=== PATIENT | female | born 1955 | race Caucasian/White ===

== ENCOUNTER 2023-10-13 18:41 | Observation (INO) | payer BC, SELFPAY ==
[2023-10-13] VITALS (33 sets, daily range): BP systolic 143–212; BP diastolic 76–102; PULSE 58–69; RESP 14–18; TEMP 36.6–37.2; O2SAT 94–99
--- NOTE | 2023-10-13 19:00 | RT.EKG_ITS ---
APPROVED REPORT Exam: Resting ECG Reason for Exam: SOB Patient Location: E HR:58 bpm ECG Measurements Heart Rate 58 AXIS WA 147 P 53 QRSd 89 QRS 41 QT 418 T 62 QTc 410 Conclusion Sinus bradycardia...rate< [address] segment or T wave abnormlaiteis to suggest occlusive UT.
--- NOTE | 2023-10-13 19:04 | W.ED.GENAD ---
HPI General Date/Time Provider Initiated Documentation: 10/13/23 19:04. HPI Narrative: 67 year-old female presents to ED today by POV/ambulating with her son with a chief complaint of L arm and facial numbness with onset around 1715 that completely resolved in 10 minutes. Patient had just arrived from plane ride to see her son & grandson here in [place] from [place]. Quality described as tingling and numbness without loss of coordination or weakness- spreading to numbness of the left side of both her lips without facial droop or slurred speech, no radiation to slurred speech, altered mentation, lower extremity involvement, visual changes, dizziness, confusion, repetitive questioning, lack of coordination, the patient was able to ambulate around a grocery store for the entire 10 minutes that this lasted as it spontaneously resolved. Severity is described as unable to quantify. Palliating factors include nothing specific attempted they did present to urgent care around 1800 who sent them here. Provoking factors include nothing specific. Events leading up to the incident/Associated Symptoms: Patient denies known A-fib history, denies stroke history, takes only celecoxib, Humira for rheumatoid arthritis as well as pantoprazole. Patient not anticoagulated. Related Data Home Medications Medication Instructions Recorded Confirmed adalimumab subcut 10/13/23 celecoxib 200 mg capsule (Celebrex) 200 mg PO DAILY 10/13/23 10/13/23 pantoprazole 40 mg tablet,delayed 40 mg PO DAILY PRN 10/13/23 10/13/23 release (Protonix) Allergies Allergy/AdvReac Type Severity Reaction Status Date / Time Penicillins AdvReac Skin Rash Verified 10/13/23 18:57 General Stated Complaint: Vascular TASH: 3 Review of Systems All systems reviewed & are unremarkable except as noted in HPI and below Exam Narrative Exam Narrative: GENERAL APPEARANCE: Well-nourished, non-toxic, awake and alert, atraumatic, no acute distress. SKIN: Warm, pink, dry, intact, without rashes/lesions/ulcerations. HEAD: Normocephalic, atraumatic, normal hair distribution for gender/age. EYES: Pupils PERRLA, EOMs intact without nystagmus, normal conjunctiva, no exudates on lids/lashes. ENT: Nares patent, no circumoral cyanosis, no facial swelling NECK: Supple, trachea midline, painless cervical ROM, no carotid bruit. LUNGS/CHEST: Lungs CTA bilaterally- no rhonchi/rales/wheezes diffusely, non-labored respirations, normal A/P diameter, symmetrical expansion, no chest wall deformity HEART (CV/PV): Regular rate and rhythm without murmur, no peripheral edema, no JVD. ABDOMEN: Soft, non-distended, no guarding, no tenderness. MSK: Normal ROM, no swelling/deformity to bilateral UEs or LEs, moving all extremities without weakness, no cyanosis, spine midline without tenderness, normal curvature. NEURO: Mental Status AAOx4 - alert to person, place, time, events No facial droop, no forehead involvement, no dysmetria with cerebellar testing Motor: No focal weakness - strength 5/5 in bilateral UEs and LEs, proximal and distal, symmetric, no pronator drift. Sensory: sensation intact to light touch globally. Gait normal: patient ambulated without ataxia into ED room. NIH: 0 PSYCH: euthymic, cooperative, pleasant, appropriate speech Course Vital Signs Vital signs: Vital Signs Temperature 37.2 C 10/13/23 18:52 Pulse 69 10/13/23 18:52 Respiratory Rate 18 10/13/23 18:52 Blood Pressure 189/94 H 10/13/23 18:52 Pulse Oximetry 99 10/13/23 18:52 Temperature 37.2 C 10/13/23 18:52 Temperature Source Tympanic 10/13/23 18:52 Pulse 69 10/13/23 18:52 Respiratory Rate 18 10/13/23 18:52 Blood Pressure 189/94 H 10/13/23 18:52 Blood Pressure Position Supine 10/13/23 18:52 Pulse Oximetry 99 10/13/23 18:52 Oxygen Delivery Method Room Air 10/13/23 18:52 Oxygen Flow Rate 0 10/13/23 18:52 Pain Level 0 10/13/23 18:52 Medical Decision Making This dictation utilizes [id number] dictation software and may contain unedited grammatical errors. 67 y/o F presents to ED today with a chief complaint of L arm and facial numbness onset around 1715, completely resolved in 10 minutes, denies slurred speech, facial droop altered mentation or weakness throughout- has rheumatoid arthritis, denies a. fib history- patient did just fly to [place] from [place] today. Patient denies stroke history- presented to [facility] around 1800 who referred here. Patients' medical history: nothing specific. 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 Pertinent exam findings / vital signs include neuro intact with an NIH of 0, benign cardiopulmonary exam, benign abdomen, nontoxic vitals, regular rate, no carotid bruit. Differential / pathologies of concern include TIA, Neuropathy, Cervical Strain. Diagnostic studies of: -EKG, CBC, CMP, CRP/ESR, PT/PTT, urinalysis, lactate, Trop I + delta, BNP, TSH, CTA brain and neck. -EKG shows sinus bradycardia 58 bpm with normal axis, P waves followed by narrow complex QRS with good R wave progression, no acute ST changes, normal QT QTc. -CBC benign -CMP wnl -CRP/ESR neg -UA shows trace leuk esterase > reflexed to culture -Trop negative, delta pending -BNP wnl -TSH wnl -CTA head & neck shows some mild stenosis R vertebral artery, mild to moderate at left vertebral, <50% stenosis at R ICA Interventions of: -150mL/hr IVF. ED Course/Assessment/Plan: 67-year-old female who is traveling by plane all day from [place] presents after having a brief episode of left arm complete numbness and left-sided facial numbness at the grocery store with her son around 1715 today, she went to [facility] care about an hour later and was referred here. CTA of the head and neck shows less than 50% occlusion of the right ICA which could be source of atherosclerotic plaque if a piece broke off causing a TIA, she does not take any blood pressure medicines and her blood pressure is well out of control in the 190s to 200s over 90, she does not take aspirin or DAPT therapy, she has no known atrial fibrillation history. I counseled the patient that she has a high risk of further stroke if she is not optimized on medicine and admitted for TIA. I approached Dr. Hanson of the hospitalist service who accepted for admission, she received 324 mg aspirin while in the ED, likely needs a possible MRI, med management and neuroconsult. Findings not consistent with CVA, possible TIA though- patient has no other concerning pathology at this time, denies neck trauma. Disposition of Transient Ischemic Attack. Patient verbalized understanding of the plan and return to ED criteria and engaged in shared decision making. Medical Records Medical records reviewed: Yes I reviewed the patient's medical records. Imaging Data Radiologic Study: Attestation: I personally reviewed and interpreted this imaging study as follows: Imaging: CT Scan Radiologist's impression: Exam: CTA Head With Contrast, Arteriography Exam date and time: 10/13/2023 7:41 PM Age: 67 years old Clinical indication: Stroke-like symptoms; Other: L hand tingling; Additional info: L hand tingling, possible elvia today TECHNIQUE: Imaging protocol: Computed tomographic angiography of the head with contrast. Exam focused on the arteries. 3D rendering (Not supervised by radiologist): MIP and/or 3D reconstructed images were created by the technologist. Radiation optimization: All CT scans at this facility use at least one of these dose optimization techniques: automated exposure control; mA and/or kV adjustment per patient size (includes targeted exams where dose is matched to clinical indication); or iterative reconstruction. Contrast material: OMNIPAQUE 350; Contrast volume: 85 ml; Contrast route: INTRAVENOUS (IV); COMPARISON: No relevant prior studies available. FINDINGS: ANTERIOR CIRCULATION: Right internal carotid artery: Intracranial segment is patent with no significant stenosis. No aneurysm. Right middle cerebral artery: No occlusion or significant stenosis. No aneurysm. Right anterior cerebral artery: No occlusion or significant stenosis. No aneurysm. Left internal carotid artery: Intracranial segment is patent with no significant stenosis. No aneurysm. Left middle cerebral artery: No occlusion or significant stenosis. No aneurysm. Left anterior cerebral artery: No occlusion or significant stenosis. No aneurysm. POSTERIOR CIRCULATION: Right vertebral artery: Mild stenosis right vertebral artery at the foramen magnum. Left vertebral artery: [id number] stenosis left vertebral artery at the foramen magnum. Basilar artery: No occlusion or significant stenosis. No aneurysm. Right posterior cerebral artery: No occlusion or significant stenosis. No aneurysm. Left posterior cerebral artery: No occlusion or significant stenosis. No aneurysm. Brain: Small vessel ischemic changes in the periventricular white matter. No evidence of an acute cortical infarct. Cerebral ventricles: No ventriculomegaly. Paranasal sinuses: Mild ethmoid sinus disease. Bones/joints: Unremarkable. No acute fracture. Soft tissues: Unremarkable. IMPRESSION: 1. Mild stenosis right vertebral artery at the foramen magnum. 2. [id number]-[id number] stenosis left vertebral artery at the foramen magnum. PROCEDURE INFORMATION: Exam: CTA Neck With Contrast Exam date and time: 10/13/2023 7:41 PM Age: 67 years old Clinical indication: Stroke-like symptoms; Other: L hand tingling; Additional info: L hand tingling, possible elvia today TECHNIQUE: Imaging protocol: Computed tomographic angiography of the neck with contrast. Exam focused on the cervical segments of the vasculature. 3D rendering (Not supervised by radiologist): MIP and/or 3D reconstructed images were created by the technologist. Radiation optimization: All CT scans at this facility use at least one of these dose optimization techniques: automated exposure control; mA and/or kV adjustment per patient size (includes targeted exams where dose is matched to clinical indication); or iterative reconstruction. Contrast material: OMNIPAQUE 350; Contrast volume: 85 ml; Contrast route: INTRAVENOUS (IV); COMPARISON: No relevant prior studies available. FINDINGS: Right common carotid artery: No stenosis. No dissection or occlusion. Right internal carotid artery: Less than 50% stenosis proximal right ICA. Right external carotid artery: No occlusion or stenosis of the origin. Left common carotid artery: No stenosis. No dissection or occlusion. Left internal carotid artery: No stenosis of the extracranial segment. No dissection or occlusion. Left external carotid artery: No occlusion or stenosis of the origin. Right vertebral artery: No stenosis. No dissection or occlusion. Left vertebral artery: No stenosis. No dissection or occlusion. Soft tissues: Normal. No significant soft tissue swelling. Bones/joints: No acute fracture. IMPRESSION: Less than 50% stenosis proximal right ICA. REFERENCES: NASCET CRITERIA. The degree of stenosis in the cervical segment of the internal carotid artery is based on NASCET criteria. Normal is no stenosis. Mild is less than 50% stenosis. Moderate is 50-69% stenosis. Severe is 70% to 99% stenosis. Total occlusion is no detectable patent lumen. Dictated and Authenticated by: Ric Tellez MD. Ordering:RAFI De Leon MD Lab Data Lab results reviewed: Yes I reviewed the patient's lab results. Labs: 10/13/23 19:37 Urine - Reflex from Ua Urine Culture - Pending Laboratory Tests Range/Units 10/13/23 10/13/23 19:26 19:37 WBC (4.4-10.8) 10^3/uL 7.28 RBC (3.93-5.22) 10^6/uL 4.17 Hgb (11.2-15.7) g/dL 13.6 Hct (36.0-46.0) % 39.0 MCV (80-95) fL 94 MCH (27.0-33.0) pg 32.6 MCHC (32.0-36.0) % 34.9 RDW (11.7-14.6) % 12.8 Plt Count (130-400) 10^3/uL 334 MPV (8.0-11.0) fL 9.0 Immature Gran % 0.4 Neutrophils % 45.2 Lymphocytes % 41.2 Monocytes % 7.0 Eosinophils % 5.4 Basophils % 0.8 Nucleated RBC % (0.0-0.3) % 0.0 Absolute Neutrophils (1.2-6.7) 10^3/uL 3.29 Absolute Lymphocytes (1.2-3.4) 10^3/uL 3.00 Absolute Monocytes (0.1-0.8) 10^3/uL 0.51 Absolute Eosinophils (0.0-0.7) 10^3/uL 0.39 Absolute Basophils (0.0-0.2) 10^3/uL 0.06 ESR (0-30) mm/hr 6 PT (9.1-11.1) sec 9.8 INR (0.9-1.1) 1.0 APTT (23.6-32.8) sec 24.3 VBG Lactate (0.6-1.4) mmol/L 0.9 Sodium (136-145) mmol/L 142 Potassium (3.5-5.1) mmol/L 3.8 Chloride (98-107) mmol/L 105 Carbon Dioxide (21.0-32.0) mmol/L 27.4 Anion Gap (3-11) mmol/L 9.6 BUN (7-18) mg/dL 12 Creatinine (0.55-1.02) mg/dL 0.8 Est GFR (CKD-EPI 2020) (mL/min/1.73m2) 79.71 Glucose (74-106) mg/dL 99 Calcium (8.5-10.1) mg/dL 9.4 Magnesium (1.8-2.4) mg/dL 2.3 Total Bilirubin (0.2-1.0) mg/dL 0.6 AST (15-37) U/L 22 ALT (14-59) U/L 36 Alkaline Phosphatase (46-116) U/L 92 Troponin I (< or =60) ng/L < 50 C-Reactive Protein (<or=0.5) mg/dL < 0.50 NT-Pro-B Natriuret Pep (<300) pg/mL 35 Total Protein (6.4-8.2) g/dL 7.7 Albumin (3.4-5.0) g/dL 3.8 TSH (0.36-3.74) uIU/mL 2.91 Urine Color (Yellow) Yellow Urine Clarity (Clear) Clear Urine pH (5-8) 6.0 Ur Specific [place] (1.005-1.025) 1.015 Urine Protein (Neg-Trace) mg/dL Negative Urine Ketones (Negative) mg/dL Negative Urine Blood (Negative) Negative Urine Nitrite (Negative) Negative Urine Bilirubin (Negative) Negative Urine Urobilinogen (Up to 0.2) mg/dL 0.2 Ur Leukocyte Esterase (Negative) Trace H Urine RBC (0-2) HPF Negative Urine WBC (0-5) HPF 3-5 Ur Epithelial Cells (Negative) HPF Rare Urine Crystals (Negative) HPF Negative Urine Bacteria (Negative) HPF Rare Urine Casts (Negative) LPF Negative Urine Mucus (Negative) Negative Urine Other (Negative) Rare Renal Ur Culture Indicated? Yes Urine Glucose (Negative) mg/dL Negative Quality:SDOH Health Related Social Needs: No Data to Display PFSH All Active Problems (Updated 10/13/23 @ 21:36 by MULU Cole) Transient ischemic attack (Acute) Social History Smoking risk assessment performed?: No Do you feel safe at home: Yes Discharge Plan Disposition Patient Disposition: Admit to [facility] Condition: Stable Discharge Details Clinical Impression: Transient ischemic attack Primary Care Provider: None,None ED Provider: Moises Verdugo Home Meds and New Rx's Prescriptions: No Action adalimumab [Humira(CF) Pen] subcut celecoxib [Celebrex] 200 mg capsule 200 mg PO DAILY pantoprazole [Protonix] 40 mg tablet,delayed release (DR/EC) 40 mg PO DAILY PRN
[2023-10-13] MEDS: Normal Saline - Diluent 50 ML VIAL IJ (19:32)
[2023-10-13] MEDS: Omnipaque 350 MG/ML 100 ML BTL IJ (19:34)
[2023-10-13 19:36] LABS: Lactate 0.9 mmol/L (0.6-1.4)
[2023-10-13] MEDS: Normal Saline Flush 10 ML SYR IVP (19:37)
[2023-10-13 19:40] LABS: Abs Immature Grans 0.03 10^3/uL (0.0-0.06); Absolute Basophil Count 0.06 10^3/uL (0.0-0.2); Absolute Eosinophil Count 0.39 10^3/uL (0.0-0.7); Absolute Monocyte Count 0.51 10^3/uL (0.1-0.8); Absolute Neutrophil Count 3.29 10^3/uL (1.2-6.7); Basophils % 0.8; Eosinophils % 5.4; HGB 13.6 g/dL (11.2-15.7); Immature Grans % 0.4; Lymphocytes % 41.2; MCH 32.6 pg (27.0-33.0); MCHC 34.9 % (32.0-36.0); MCV 94 fL (80-95); Neutrophils % 45.2; Platelet Count 334 10^3/uL (130-400); RBC 4.17 10^6/uL (3.93-5.22); RDW 12.8 % (11.7-14.6); WBC 7.28 10^3/uL (4.4-10.8)
[2023-10-13 19:49] LABS: ESR 6 mm/hr (0-30)
[2023-10-13 19:54] LABS: PTT Activated 24.3 sec (23.6-32.8); Prothrombin Time 9.8 sec (9.1-11.1)
[2023-10-13 20:00] LABS: Bilirubin Negative (Negative); Blood Negative (Negative); Clarity Clear (Clear); Glucose Negative (Negative); Ketones Negative (Negative); Leukocyte Esterase Trace (Negative); Nitrite Negative (Negative); Specific Gravity 1.015 (1.005-1.025); Urobilinogen 0.2 mg/dL (Up to 0.2)
[2023-10-13] MEDS: Normal Saline 1,000 ML 150 ML IV (20:00)
[2023-10-13 20:06] LABS: Bacteria Rare HPF (Negative); C & S Indicated? Yes; Casts Negative LPF (Negative); Crystals Negative HPF (Negative); Epithelial Cells Rare HPF (Negative); Mucus Negative (Negative); Other Cells Rare Renal (Negative); RBC Negative HPF (0-2)
[2023-10-13 20:07] LABS: NT-proBNP 35 pg/mL (<300); TSH (W/Ref FT4) 2.91 uIU/mL (0.36-3.74)
[2023-10-13 20:10] LABS: ALT 36 U/L (14-59); AST 22 U/L (15-37); Albumin 3.8 g/dL (3.4-5.0); Alkaline Phosphatase 92 U/L (46-116); Anion Gap 9.6 mmol/L (3-11); BUN 12 mg/dL (7-18); Bilirubin, Total 0.6 mg/dL (0.2-1.0); C-Reactive Protein < 0.50 mg/dL (<or=0.5); CO2 27.4 mmol/L (21.0-32.0); CREATININE 0.8 mg/dL (0.55-1.02); Calcium 9.4 mg/dL (8.5-10.1); Chloride 105 mmol/L (98-107); Estimated GFR 79.71 (mL/min/1.73m2); Glucose 99 mg/dL (74-106); Magnesium 2.3 mg/dL (1.8-2.4); Potassium 3.8 mmol/L (3.5-5.1); Sodium 142 mmol/L (136-145); Total Protein 7.7 g/dL (6.4-8.2); Troponin I < 50 ng/L (< or =60)
--- NOTE | 2023-10-13 20:17 | DI.CT_ITS ---
Exam(s) CT BRAIN NECK CTA EXAM: CT BRAIN NECK CTA CLINICAL HISTORY: possible TIA today. TECHNIQUE: Imaging Protocol: Axial CT angiography was performed with multi-slice acquisition and mu lti-planar and MIP reconstructions. CONTRAST MATERIAL: Intravenous: Omnipaque 350 Contrast volume:100 ml COMPARISON: No exams were available for comparison FINDINGS: CT Head W/O and W contrast: Ventricles and Extra axial spaces: Normal in size and morphology for the patient's age. Hemorrhage: None. Cerebral parenchyma: No evidence of acute infarct or mass. Midline shift: None. Brainstem/Cerebellum: No acute findings.. Calvarium: Normal. Visualized Paranasal sinuses/Mastoids: Clear. Soft Tissues: Unremarkable. Enhancement: Normal. CTA Brain W: Internal Carotid Arteries: Petrous: Normal. Cavernous: Normal. Cerebral: Normal. Middle Cerebral Arteries: Right: No aneurysm, occlusion or significant stenosis. Left: No aneurysm, occlusion or significant stenosis. Anterior Cerebral Arteries: Right: No aneurysm, occlusion or significant stenosis. Left: No aneurysm, occlusion or significant stenosis. Posterior cerebral Arteries: Right: No aneurysm, occlusion or significant stenosis. Left: No aneurysm, occlusion or significant stenosis. Vertebral Arteries: Right: Calcific plaque at the level of the foramen magnum causing mild stenosis.No aneurysm, occlusi on or significant stenosis. Left: Calcific plaque at the level of the foramen magnum causing mild stenosis. No aneurysm, occlusio n or significant stenosis. Basilar Artery: No aneurysm, occlusion or significant stenosis. CTA Neck W: Common Carotid: Right: No dissection, occlusion or significant stenosis. Left: No dissection, occlusion or significant stenosis. External Carotid: Right: No dissection, occlusion or significant stenosis. Left: No dissection, occlusion or significant stenosis. Internal Carotid: Right: Calcific plaque proximally causing less than 50 percent stenosis.. No dissection. Left: Calcific plaque proximally. No dissection, occlusion or significant stenosis. Vertebral Artery: Right: No dissection, occlusion or significant stenosis. Left: No dissection, occlusion or significant stenosis. Lung Apices: Normal. Bones: No acute abnormality. Degenerative changes in the cervical spine. Soft Tissues: Normal. IMPRESSION: 1. CTA brain: Calcific plaque at the distal vertebral arteries, at the level of the foramen magnum ca using mild stenosis. Otherwise normal CTA examination of the [place]. 2. Head CT: Unremarkable CT Head. 3. CTA neck: Calcific plaque at the left proximal internal artery carotid artery causing less than 50 percent stenosis. Calcific plaque at the proximal right internal carotid artery with minimal stenos is. RADIATION DOSE DELIVERED: 1,748.01mGy.cm Total DLP DATA REPOSITORY: All CT scans at this facility are submitted to the National Radiology Data Registry (NRDR) Dose Index Registry (DIR) with the [employer] (ACR). RADIATION OPTIMIZATION: All CT scans at this facility use at least one of these dose optimization te chniques: automated exposure control; mA and/or kV adjustment per patient size (includes targeted exa ms where dose is matched to clinical indication); or iterative reconstruction.
--- NOTE | 2023-10-13 20:22 | DI.VRAD_ITS ---
PROCEDURE INFORMATION: Exam: CTA Head With Contrast, Arteriography Exam date and time: 10/13/2023 7:41 PM Age: 67 years old Clinical indication: Stroke-like symptoms; Other: L hand tingling; Additional info: L hand tingling, possible elvia today TECHNIQUE: Imaging protocol: Computed tomographic angiography of the head with contrast. Exam focused on the arteries. 3D rendering (Not supervised by radiologist): MIP and/or 3D reconstructed images were created by the technologist. Radiation optimization: All CT scans at this facility use at least one of these dose optimization techniques: automated exposure control; mA and/or kV adjustment per patient size (includes targeted exams where dose is matched to clinical indication); or iterative reconstruction. Contrast material: OMNIPAQUE 350; Contrast volume: 85 ml; Contrast route: INTRAVENOUS (IV); COMPARISON: No relevant prior studies available. FINDINGS: ANTERIOR CIRCULATION: Right internal carotid artery: Intracranial segment is patent with no significant stenosis. No aneurysm. Right middle cerebral artery: No occlusion or significant stenosis. No aneurysm. Right anterior cerebral artery: No occlusion or significant stenosis. No aneurysm. Left internal carotid artery: Intracranial segment is patent with no significant stenosis. No aneurysm. Left middle cerebral artery: No occlusion or significant stenosis. No aneurysm. Left anterior cerebral artery: No occlusion or significant stenosis. No aneurysm. POSTERIOR CIRCULATION: Right vertebral artery: Mild stenosis right vertebral artery at the foramen magnum. Left vertebral artery: [id number]-zrwzoooi stenosis left vertebral artery at the foramen magnum. Basilar artery: No occlusion or significant stenosis. No aneurysm. Right posterior cerebral artery: No occlusion or significant stenosis. No aneurysm. Left posterior cerebral artery: No occlusion or significant stenosis. No aneurysm. Brain: Small vessel ischemic changes in the periventricular white matter. No evidence of an acute cortical infarct. Cerebral ventricles: No ventriculomegaly. Paranasal sinuses: Mild ethmoid sinus disease. Bones/joints: Unremarkable. No acute fracture. Soft tissues: Unremarkable. IMPRESSION: 1. Mild stenosis right vertebral artery at the foramen magnum. 2. Qfpj-ip-yucsricw stenosis left vertebral artery at the foramen magnum. PROCEDURE INFORMATION: Exam: CTA Neck With Contrast Exam date and time: 10/13/2023 7:41 PM Age: 67 years old Clinical indication: Stroke-like symptoms; Other: L hand tingling; Additional info: L hand tingling, possible elvia today TECHNIQUE: Imaging protocol: Computed tomographic angiography of the neck with contrast. Exam focused on the cervical segments of the vasculature. 3D rendering (Not supervised by radiologist): MIP and/or 3D reconstructed images were created by the technologist. Radiation optimization: All CT scans at this facility use at least one of these dose optimization techniques: automated exposure control; mA and/or kV adjustment per patient size (includes targeted exams where dose is matched to clinical indication); or iterative reconstruction. Contrast material: OMNIPAQUE 350; Contrast volume: 85 ml; Contrast route: INTRAVENOUS (IV); COMPARISON: No relevant prior studies available. FINDINGS: Right common carotid artery: No stenosis. No dissection or occlusion. Right internal carotid artery: Less than 50% stenosis proximal right ICA. Right external carotid artery: No occlusion or stenosis of the origin. Left common carotid artery: No stenosis. No dissection or occlusion. Left internal carotid artery: No stenosis of the extracranial segment. No dissection or occlusion. Left external carotid artery: No occlusion or stenosis of the origin. Right vertebral artery: No stenosis. No dissection or occlusion. Left vertebral artery: No stenosis. No dissection or occlusion. Soft tissues: Normal. No significant soft tissue swelling. Bones/joints: No acute fracture. IMPRESSION: Less than 50% stenosis proximal right ICA. REFERENCES: NASCET CRITERIA. The degree of stenosis in the cervical segment of the internal carotid artery is based on NASCET criteria. Normal is no stenosis. Mild is less than 50% stenosis. Moderate is 50-69% stenosis. Severe is 70% to 99% stenosis. Total occlusion is no detectable patent lumen. Dictated and Authenticated by: Ric Tellez MD. Ordering:RAFI De Leon MD
[2023-10-13] MEDS: Aspirin 325 MG TAB PO (21:27)
--- NOTE | 2023-10-13 21:59 | W.PM.HP.N ---
Date of service: 10/13/23 Time of Service: 21:59 Assessment and Plan Assessment and plan (1) Transient ischemic attack: Status: Acute Assessment and plan: Probable TIA. Will continue ASA, watch telemetry, check lipid profile, cardiac ECHO and consult Neuro. Advised we might want to start treatment for BP but she would prefer to hold off and thinks this is just the stress of the situation; agrees though that she will keep an eye on it. History of Present Illness History of Present Illness Chief Complaint: hand numbness Narrative: 67 female who reports h/o white coat hypertension. Here visiting from [place], has had a hectic day -- no sleep last night, flew in this morning, in the car for hours... Reports fairly sudden onset left hyand numbness and tingling around 5 PM, the also left side of lowerr face. No weakness, visual changes, speech or language disturbance. No SAUNDERS. Lasted approx 10 minutes and came to ER for evaluation. Here in ER w/o of note for BP 160-212/84-102; negative non-contrast head CT, and CTA showing <50% stenosis right ICA, otherwise no findings. Patient given ASA 324. I was asked to evaluate for admission. States she feels fine at present (other than anxious about being here). Quit smoking 30 years ago. No h/o DM. Dose not know cholesterol. Review of Systems Narrative: per HPI PFSH All Active Problems Transient ischemic attack (Acute) Social History Smoking risk assessment performed?: No Do you feel safe at home: Yes Meds Allergies and Home Medications Allergies Allergy/AdvReac Type Severity Reaction Status Date / Time Penicillins AdvReac Skin Rash Verified 10/13/23 18:57 Home Medications Medication Instructions Recorded Confirmed Type adalimumab subcut 10/13/23 History celecoxib 200 mg capsule (Celebrex) 200 mg PO DAILY 10/13/23 10/13/23 History pantoprazole 40 mg tablet,delayed 40 mg PO DAILY PRN 10/13/23 10/13/23 History release (Protonix) Exam Narrative Exam Narrative: 205/93, 60, 37.2, 18, 95% RA. HEENT atraumatic; neck supple, w/o bruit; lungs clear; heart RRR; abdomen soft and NT; extremities w/o edema, pulses 2+/=, Phalen's and Tinel's tests negative left wrist; neuro Ox3, lucid, no language deficits; PERRL, EOMI, williamson full, no facial asymettry, tongue midline; motor 5/5 prox/distal; sensory intact light touch; toes downgoing Results Labs 10/13/23 19:26 10/13/23 19:26 Labs: Laboratory Results - last 24 hr 10/13/23 10/13/23 19:26 19:37 WBC 7.28 RBC 4.17 Hgb 13.6 Hct 39.0 MCV 94 MCH 32.6 MCHC 34.9 RDW 12.8 Plt Count 334 MPV 9.0 Immature Gran % 0.4 Neutrophils % 45.2 Lymphocytes % 41.2 Monocytes % 7.0 Eosinophils % 5.4 Basophils % 0.8 Nucleated RBC % 0.0 Absolute Neutrophils 3.29 Absolute Lymphocytes 3.00 Absolute Monocytes 0.51 Absolute Eosinophils 0.39 Absolute Basophils 0.06 ESR 6 PT 9.8 INR 1.0 APTT 24.3 VBG Lactate 0.9 Sodium 142 Potassium 3.8 Chloride 105 Carbon Dioxide 27.4 Anion Gap 9.6 BUN 12 Creatinine 0.8 Est GFR (CKD-EPI 2020) 79.71 Glucose 99 Calcium 9.4 Magnesium 2.3 Total Bilirubin 0.6 AST 22 ALT 36 Alkaline Phosphatase 92 Troponin I < 50 C-Reactive Protein < 0.50 NT-Pro-B Natriuret Pep 35 Total Protein 7.7 Albumin 3.8 TSH 2.91 Urine Color Yellow Urine Clarity Clear Urine pH 6.0 Ur Specific [place] 1.015 Urine Protein Negative Urine Ketones Negative Urine Blood Negative Urine Nitrite Negative Urine Bilirubin Negative Urine Urobilinogen 0.2 Ur Leukocyte Esterase Trace H Urine RBC Negative Urine WBC 3-5 Ur Epithelial Cells Rare Urine Crystals Negative Urine Bacteria Rare Urine Casts Negative Urine Mucus Negative Urine Other Rare Renal Ur Culture Indicated? Yes Urine Glucose Negative Last Vital Signs Temp 37.2 C 10/13/23 18:52 Pulse 60 10/13/23 21:31 Resp 18 10/13/23 18:52 BP 205/93 H 10/13/23 21:31 Pulse Ox 95 10/13/23 21:32 PAWSS Have you Been Recently Intoxicated or Drunk Within the Last 30 days?: No Have you Ever Experienced Previous Episodes of Alcohol Withdrawal?: No Have you ever Experienced Withdrawal Seizures?: No Have you ever Experienced Delirium Tremens(DT)s?: No Have you ever undergone Alcohol Rehabilitation Treatment (i.e, inpt ot outpatient treatment programs)?: No Have you ever Experienced Blackouts?: No Have you ever Combined Alcohol with other Downers within the last 90 days?: No Have you ever Combined Alcohol with any other Substance of Abuse during the last 90 days?: No Positive Blood Alcohol level on Presentation? [PCS.BAL]: Unable to Obtain Evidence of Increased Autonomic Activity (i.e. HR>120, tremor, sweating, agitation, nausea)?: No Result: 0 Time Spent Time spent with Patient: 40-54 minutes Time was spent: preparing to see the patient(eg.review tests), obtaining and/or reviewing separately otained hiistory, ordering medications,tests, procedures, referring, communicating with other health acute care nursing assistant and indepentently interpreting results
[2023-10-13 22:47] LABS: Troponin I < 50 ng/L (< or =60)
--- NOTE | 2023-10-14 | DI.US_ITS ---
Exam(s) US CAROTID EXAM: US CAROTID CLINICAL HISTORY: carotid stenosis. TECHNIQUE: Ultrasound carotids performed using grayscale, color-flow, and spectral Doppler imaging. COMPARISON: CT CT BRAIN NECK CTA from 10/13/2023 FINDINGS: RIGHT CAROTID ARTERY: Plaque: Calcific plaque is seen in the proximal right internal carotid artery. Velocity elevation: Full loss the elevation is seen in the proximal right internal carotid artery. LEFT CAROTID ARTERY: Plaque: Mild calcific plaque is seen in the carotid bulb. Velocity elevation: None. VERTEBRAL ARTERIES: Antegrade flow. Measurements: R Bulb: 93.6cm/s PS / 26.9cm/s ED R CCA: 83.7cm/s PS / 30.2cm/s ED R ECA: 106.1cm/s PS / 21.6cm/s ED R ICA Prox: 136.2cm/s PS / 39.4cm/s ED R ICA Mid: 78.3cm/s PS / 28cm/s ED R ICA Distal: 98cm/s PS /33.8cm/s ED R Vert: 39.5cm/s PS / 15.3cm/s ED R SVR: 1.6 R DVR: 1.3 L Bulb: 66.3cm/s PS / 20.3cm/s ED L CCA: 76.3cm/s PS / 27.1cm/s ED L ECA: 96.8cm/s PS / 16cm/s ED L ICA Prox: 87cm/s PS / 29.1cm/s ED L ICA Mid: 86.5cm/s PS / 27.7cm/s ED L ICA Distal: 99cm/s PS / 36.1cm/s ED L Vert: 46.1cm/s PS / 16.4cm/s ED L SVR: 1.3 L DVR: 1.3 IMPRESSION: 1. Velocity elevations seen in the proximal right internal carotid artery consistent with 50-69 perce nt proximal right ICA stenosis. 2. No hemodynamically significant left internal carotid artery stenosis. Criteria for Carotid Stenosis: Normal: ICA PSV <125 cm/s no plaque or intimal thickening is visible. <50% stenosis: ICA PSV <125 cm/s and plaque or intimal thickening is visible. 50-69% stenosis: ICA PSV is 125-250 cm/s and plaque is visible. >70% stenosis to near occlusion: ICA PSV >250 cm/s with visible plaque and luminal narrowing. DATA REPOSITORY:
--- NOTE | 2023-10-14 | DI.MRI_ITS ---
Exam(s) MR BRAIN WO EXAM: MR BRAIN WO CLINICAL HISTORY: TIA TECHNIQUE: Multiplanar multisequence MRI of the brain was performed. COMPARISON: CT CT BRAIN NECK CTA from 10/13/2023 FINDINGS: VENTRICLES AND EXTRA AXIAL SPACES: Normal in size and morphology for the patient's age. MIDLINE SHIFT: None. CEREBRAL PARENCHYMA: No focus of restricted diffusion to suggest acute infarct. No space-occupying le izzy identified. Mild atrophy consistent with the patient's age. Mild scattered foci of high signal in the white matter consistent with sequela of chronic microvascular disease. HEMORRHAGE: None. BRAINSTEM/CEREBELLUM: Normal. VISUALIZED PARANASAL SINUSES/MASTOIDS:Clear. Vasculature: Normal flow void. PITUITARY GLAND: Unremarkable. ORBITS: Unremarkable. IMPRESSION: No evidence of acute infarct. DATA REPOSITORY:
[2023-10-14 02:21] VITALS: BP 133/69; PULSE 63; RESP 14; TEMP 35.9; O2SAT 98
[2023-10-14] MEDS: Normal Saline 1,000 ML 150 ML IV (02:27)
[2023-10-14 06:17] VITALS: BP 143/73; PULSE 58; RESP 14; TEMP 35.9; O2SAT 97
[2023-10-14 06:38] LABS: Calculated LDL 122 mg/dL (<100); Cholesterol 201 mg/dL (<200); HDL Cholesterol 48 mg/dL (40-60); Triglyceride 158 mg/dL (<150)
[2023-10-14 06:48] LABS: Hemoglobin A1C 5.2 % (<5.7)
[2023-10-14] MEDS: Aspirin 325 MG TAB PO (08:03)
--- NOTE | 2023-10-14 09:08 | INITIAL_ITS ---
Date of service: 10/14/23 Time of Service: 09:09 Care Management Initial Assmt Initial Assessment REASON FOR HOSPITALIZATION:: TIA PREVIOUS FUNCTIONAL STATUS/SOCIAL/FAMILY SUPPORTS:: Sheryl lives in [place], [place] with her . They have grown children. Sheryl and her visiting with their son and his family. They plan to return home in 3 days. Sheryl is independent at baseline. CURRENT FUNCTIONAL STATUS:: Sheryl was sitting on the side of her bed when CM met with her. She wanted to know if the neurologist was going to see her today as she did not want to spend another night at [facility]. She was assured that she wou and at that time Dr. Hurley arrived. Sheryl requested a copy of her medical record and CM informed her she would need to obtain it from medical records. She was given the phone number to call. QUYNH also assured her she would fax the discharge summary to her PCPs office in [place]. ADVANCE DIRECTIVES:: none on file Has patient been provided with info about the portal/API?: Yes Did the patient sign up for the portal?: Yes CODE STATUS:: Full Code INSURANCE COVERAGE / FINANCIAL ISSUES:: BC out of state CURRENT HOME/COMMUNITY SERVICES/EQUIPMENT:: none PRIMARY CARE PHYSICIAN:: none local - from [place] POTENTIAL DISCHARGE NEEDS:: follow up with PCP when she returns home PATIENT/FAMILY EDUCATION NEEDS:: Review of discharge instructions, limitations, follow up plan, discuss Ask Me Three TRANSPORTATION:: via private vehicle with son PLAN:: Sheryl will be discharged home with no new services. She will follow up with her PCP when she returns to [place] and will transport with her son with whom she is staying. PFSH All Active Problems (Updated 10/14/23 @ 16:03 by Qi Bach NP) Hypertension (Chronic) Carotid stenosis, right (Acute) Transient ischemic attack (Acute) Social History Smoking risk assessment performed?: No Housing: house Do you feel safe at home: Yes SDOH(Care Management) Screening Will the Patient Participate in the Screening?: Yes Do you worry about having a steady place to live?: no Problems where you live: no known problems In the past 12 months, have you had to go without electric, gas, oil or water in your home?: no Have you or anyone in your house had to go without enough food to eat?: no Has lack of transportation kept you from medical appointments or from doing things needed for daily living?: no Has anyone in your support network made you feel unsafe for any reason?: no
[2023-10-14 11:14] VITALS: BP 156/79; PULSE 73; RESP 16; TEMP 36.2; O2SAT 95
[2023-10-14 15:24] VITALS: BP 131/70; PULSE 64; RESP 16; TEMP 36.5; O2SAT 98
--- NOTE | 2023-10-14 16:01 | DSE_ITS ---
Date of service: 10/14/23 Time of Service: 16:01 DS: Diagnosis Discharge Diagnosis (1) Transient ischemic attack: Status: Acute (2) Carotid stenosis, right: Status: Acute (3) Hypertension: Status: Chronic Discharge Plan Disposition Patient Disposition: Home Condition: Stable Discharge Details Reason For Visit: TIA Admit Date/Time: 10/13/23 22:13 Admit Provider: Ric Hanson Attending Provider: Ric Hanson Primary Care Provider: Unknown,Unknown Hospital Course Hospital Course: This is a 67-year-old female patient traveling from [place] who after daily traveling developed left-sided facial and hand numbness most consistent with a TIA. Her symptoms resolved spontaneously after 10 minutes. She presented here to the emergency department for evaluation. The etiology of her TIA remains unknown but most likely due to a right internal carotid artery stenosis found on her stroke workup. MRI imaging showed no acute CVA. Her TTE ED with no was notable for severely dilated left atria. She had no evidence of atrial fibri llation while being monitored here in the hospital. Blood pressures were noted to be elevated in the 1 40-1 60 range higher at time of admission but she attributed this to whitecoat syndrome it was suspected that she does have untreated hypertension. She was advised to follow-up with her primary care provider. She was seen by neurology here and recommendations are for dual antiplatelet therapy for 30 days. She was loaded with 300 mg of clopidogrel here she also received atorvastatin 80 mg and will be discharged home on atorvastatin 40 mg daily with LDL goal of less than 70% to reduce her risk of stroke. She will follow-up with her primary care provider as soon as she returns home. Discussed with Dr Shavonne Lopez Meds and New Rx's Prescriptions: New atorvastatin 40 mg tablet 40 mg PO DAILY Qty: 30 0RF clopidogrel 75 mg tablet 75 mg PO DAILY Qty: 30 0RF aspirin 81 mg capsule 81 mg PO DAILY Qty: 30 0RF Continued adalimumab [Humira(CF) Pen] subcut celecoxib [Celebrex] 200 mg capsule 200 mg PO DAILY pantoprazole [Protonix] 40 mg tablet,delayed release (DR/EC) 40 mg PO DAILY PRN Discharge Instructions Instructions: Carotid Artery Disease (DC), Hypertension (DC) Additional Instructions: take medication as prescribed. discuss treatment for your hypertension with your doctor when you return home. you will need referrals to vascular surgery and neurology from your primary care provider when you return so call to schedule appointment as soon as possible. Stand Alone Forms: Nursing Discharge Form Referrals: Unknown,Unknown [Primary Care Provider] - (primary care provider, neurology and cardiovascular surgery) Activity:: Activity as Tolerated Equipment/Supplies:: No Equipment Needed Diet:: heart healthy Discharge Orders Discharge Orders: Discharge Order (Routine); Ordered 10/14/23 Ordered By: Qi Bach Discharge Data Discharge Date/Time-TO BE ENTERED AT DEPARTURE: 10/14/23 19:15 DS: Summary Time Spent with Patient providing and/or coordinating discharge services: Less than 30 minutes Status at Discharge Functional status at discharge: independent ambulation Overall status at discharge: patient is back to baseline Mental Status: mental status grossly normal Speech and Movement: speech and movement normal Mood: congruent mood Affect: normal affect Quality:SDOH Health Related Social Needs: 2 No Data to Display Exam Psych Mental Status: mental status grossly normal Speech and Movement: speech and movement normal Mood: congruent mood Affect: normal affect DS: Data Vitals/I&O Vitals and I&O: Vital Signs Temperature 36.5 C 10/14/23 15:24 Temperature Source Tympanic 10/14/23 15:24 Pulse 64 10/14/23 15:24 Pulse Rhythm Regular 10/14/23 15:58 Respiratory Rate 16 10/14/23 15:24 Respiratory Effort Normal, Non-Labored 10/14/23 15:58 Respiratory Depth Normal 10/14/23 15:58 Respiratory Pattern Normal 10/14/23 15:58 Blood Pressure 131/70 10/14/23 15:24 Blood Pressure Mean 130 10/13/23 22:30 Blood Pressure Position Supine 10/13/23 18:52 Pulse Oximetry 98 10/14/23 15:24 Oxygen Delivery Method Room Air 10/14/23 15:24 Oxygen Flow Rate 0 10/14/23 15:24 Pain Level 0 10/14/23 15:24 Intake & Output 10/13/23 10/14/23 10/14/23 23:59 11:59 23:59 Intake Total 240 / 2216. Balance 240 / 2216. Weight 80.478 kg Intake: IV Oral 240 / 240 Other: Urine Appearance Clear Clear Urine Odor Normal Comment pt independent Voiding Methods Toilet Toilet Data Completed and Pending Labs on day of discharge: Labs from last 24 hours 10/14/23 10/13/23 10/13/23 06:10 22:20 19:37 WBC RBC Hgb Hct MCV MCH MCHC RDW Plt Count MPV Immature Gran % Neutrophils % Lymphocytes % Monocytes % Eosinophils % Basophils % Nucleated RBC % Absolute Neutrophils Absolute Lymphocytes Absolute Monocytes Absolute Eosinophils Absolute Basophils ESR PT INR APTT VBG Lactate Sodium Potassium Chloride Carbon Dioxide Anion Gap BUN Creatinine Est GFR (CKD-EPI 2020) Glucose Hemoglobin A1c 5.2 Calcium Magnesium Total Bilirubin AST ALT Alkaline Phosphatase Troponin I < 50 C-Reactive Protein NT-Pro-B Natriuret Pep Total Protein Albumin Triglycerides 158 H Total Cholesterol 201 H LDL Cholesterol, Calc 122 H HDL Cholesterol 48 TSH Urine Color Yellow Urine Clarity Clear Urine pH 6.0 Ur Specific [place] 1.015 Urine Protein Negative Urine Ketones Negative Urine Blood Negative Urine Nitrite Negative Urine Bilirubin Negative Urine Urobilinogen 0.2 Ur Leukocyte Esterase Trace H Urine RBC Negative Urine WBC 3-5 Ur Epithelial Cells Rare Urine Crystals Negative Urine Bacteria Rare Urine Casts Negative Urine Mucus Negative Urine Other Rare Renal Ur Culture Indicated? Yes Urine Glucose Negative 10/13/23 19:26 WBC 7.28 RBC 4.17 Hgb 13.6 Hct 39.0 MCV 94 MCH 32.6 MCHC 34.9 RDW 12.8 Plt Count 334 MPV 9.0 Immature Gran % 0.4 Neutrophils % 45.2 Lymphocytes % 41.2 Monocytes % 7.0 Eosinophils % 5.4 Basophils % 0.8 Nucleated RBC % 0.0 Absolute Neutrophils 3.29 Absolute Lymphocytes 3.00 Absolute Monocytes 0.51 Absolute Eosinophils 0.39 Absolute Basophils 0.06 ESR 6 PT 9.8 INR 1.0 APTT 24.3 VBG Lactate 0.9 Sodium 142 Potassium 3.8 Chloride 105 Carbon Dioxide 27.4 Anion Gap 9.6 BUN 12 Creatinine 0.8 Est GFR (CKD-EPI 2020) 79.71 Glucose 99 Hemoglobin A1c Calcium 9.4 Magnesium 2.3 Total Bilirubin 0.6 AST 22 ALT 36 Alkaline Phosphatase 92 Troponin I < 50 C-Reactive Protein < 0.50 NT-Pro-B Natriuret Pep 35 Total Protein 7.7 Albumin 3.8 Triglycerides Total Cholesterol LDL Cholesterol, Calc HDL Cholesterol TSH 2.91 Urine Color Urine Clarity Urine pH Ur Specific [place] Urine Protein Urine Ketones Urine Blood Urine Nitrite Urine Bilirubin Urine Urobilinogen Ur Leukocyte Esterase Urine RBC Urine WBC Ur Epithelial Cells Urine Crystals Urine Bacteria Urine Casts Urine Mucus Urine Other Ur Culture Indicated? Urine Glucose 10/13/23 19:37 Urine - Reflex from Urine Culture - Pending Preliminary micro results at discharge 10/13/23 19:37 Urine Culture - Pending Urine - Reflex from [facility] All Active Problems (Updated 10/15/23 @ 00:05 by JOSEPH VENTURA) Atrial dilatation, left (Acute) Hypertension (Chronic) Carotid stenosis, right (Acute) Transient ischemic attack (Acute) Social History Smoking risk assessment performed?: No Housing: house Do you feel safe at home: Yes Time Spent with Patient Time Spent with Patient: <45 minutes Time was spent: preparing to see the patient(eg.review tests), obtaining and/or reviewing separately otained hiistory, ordering medications,tests, procedures, referring, communicating with other health school child care attendant, indepentently interpreting results and counseling the patient
--- NOTE | 2023-10-14 16:27 | W.NEUROCONSU ---
Date of service: 10/14/23 Time of Service: 16:27 Assessment and Plan Assessment and plan (1) Transient ischemic attack: Status: Acute (2) Hypertension: Status: Chronic (3) Carotid stenosis, right: Status: Acute (4) Atrial dilatation, left: Status: Acute Assessment and plan: Ms. King was admitted after an episode of L face and hand numbness that seems most consistent with TIA. Etiology of her TIA remains unknown, but likely due to R ICA stenosis. After I spoke with her and after her discharge, TTE results returned notable for severely dilated L atria (I will call her tomorrow am with this info as we had pre-planned). This could be indicative of p. atrial fibrillation/flutter and thus an embolic etiology also remains in the differential. 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 Leanna Dubois and relayed the recommended plan. She will place the outpatient referrals. (f: [phone]) History of Present Illness History of Present Illness Chief Complaint: TIA Narrative: Handedness: right. Ms. King is a 67 year-old woman with RA and GERD. Her son Aiden is at bedside. On 10/13/23, she flew from [place] to here in [place] to visit her son. She landed around 2pm in [place] and then drove to [facility], stopping for lunch. They stopped at the grocery store around 5pm prior to arriving home. While at the grocery store, her left hand suddenly went numb. She then noted numbness around her left mouth. She had no weakness or speech changes. Her symptoms resolved after 10minutes. She presented to the local urgent care and then was sent to the ER where she was admitted overnight for concerns for stroke. Around 7pm, she developed a headache which she attributes to dehydration and not eating enough during the day (she didn't like the lunch stop food). Her initial BP was 189/94. She underwent the work-up as below. She was started on ASA 325mg daily. She has also been loaded on clopidogrel 75mg daily. Her BP has slowly come down but remains high 140-160s. She reports a history of white coat syndrome. She has known R ICA stenosis, known since 2019. She has declined statins in the past. She is not on an anti-platelet at baseline. She has no LE swelling, pain s/p travel, e.g. symptoms of DVT. She quit smoking 30+ years ago. She returns to [place] on 10/18/23. Work-up: -MRI brain w/o (10/14/23): No acute findings. Moderate chronic vascular changes. I reviewed these images personally and this is my personal interpretation. -CTA head/neck (10/13/23): plaque bilaterally at the carotib bulbs/ICAs and distal verts . R ICA plaque complex and long with >50% stenosis per my view. I reviewed these images personally and this is my personal interpretation. -TTE (10/14/23): EF 57% no wall motion abnormalities. Mildly increased thickness of the basal septum without LV obstruction. LA severely dilated. No PFO. -EKG/Tele: SB -A1c 5.2 -LDL 122 Review of Systems All systems reviewed & are unremarkable except as noted in HPI and below PFSH All Active Problems (Updated 10/14/23 @ 19:40 by Mehreen Barron MD) Atrial dilatation, left (Acute) Hypertension (Chronic) Carotid stenosis, right (Acute) Transient ischemic attack (Acute) Social History Smoking risk assessment performed?: No Housing: house Do you feel safe at home: Yes Visit Medication and Allergies Active Medications Generic Name Dose Route Start Last Admin Trade Name Freq PRN Reason Stop Dose Admin Acetaminophen 650 mg 10/13/23 22:15 Acetaminophen 325 Mg Tab PO Q4H PRN PRN Aspirin 325 mg 10/14/23 08:30 10/14/23 08:03 Aspirin 325 Mg Tab PO 325 mg DAILY JOHN Administration Atorvastatin Calcium 80 mg 10/14/23 20:00 Atorvastatin 40 Mg Tab PO QPM [facility] Celecoxib 200 mg 10/13/23 22:17 Celecoxib 200 Mg Cap PO DAILY PRN PRN Pain IV Miscellaneous Supplies 1 each 10/14/23 09:45 Iv Access IV DIRECTED [facility] Lorazepam 1 mg 10/14/23 06:14 Lorazepam 1 Mg Tab PO 10/14/23 21:00 PRACTICE MANAGER [facility] Pantoprazole Sodium 40 mg 10/13/23 22:16 Pantoprazole 40 Mg Tabcr PO DAILY PRN PRN Sodium Chloride 0 ml 10/13/23 19:37 10/13/23 19:37 Normal Saline Flush 10 Ml Syr IVP 10 ml PRN PRN Administration Allergies Penicillins Adverse Reaction (Verified 10/13/23 18:57) Skin Rash Exam Narrative Exam Narrative: Physical Exam: Gen: Patient of apparent stated age, NAD Head and face: no facial or cranial abnormalities Neck: Supple, no meningismus, no occipital tenderness CV: + S1, S2, RRR, no murmur Resp: CTA B/L Abd: soft, nontender, nondistended Ext: No edema. No clubbing or cyanosis. No bony deformity. Neuro Exam: Language: fluency, naming, repetition, and comprehension intact; Mental Status: AAOx3, current events intact, fund of knowledge intact; Speech: no dysarthria Cranial nerves: Funduscopy: not performed CN II: visual williamson intact CN III, IV, : extraocular movements intact, no nystagmus, pupils symmetric and reactive to light CN V: face sensation intact to LT and PP CN VII: no facial asymmetry noted CN VIII: hearing intact bilaterally CN IX, X: palate rises symmetrically CN XI: trapezius/SCM 5/5 bilaterally CN XII: protrudes tongue symmetrically Sensory: intact to LT, PP, vibration, and joint position in all extremities Motor: bulk and tone intact. Fine motor movements intact bilaterally. No pronator drift. Strength 5/5 throughout including the deltoids, biceps, triceps, wrist extensors, hip flexors, knee flexors, knee extensors, ankle flexors, and ankle extensors. Reflexes: 2+ at the biceps, triceps, brachioradialis, patella, and achilles tendons bilaterally; toes down going bilaterally; Coordination: FTN and HTS intact bilaterally Gait: not seen Results Last Vital Signs Temp 97.7 F 10/14/23 15:24 Pulse 64 10/14/23 15:24 Resp 16 10/14/23 15:24 BP 131/70 10/14/23 15:24 Pulse Ox 98 10/14/23 15:24 Labs 10/13/23 19:26 10/13/23 19:26 Labs: Laboratory Results - last 24 hr 10/13/23 10/13/23 10/13/23 19:26 19:37 22:20 WBC 7.28 RBC 4.17 Hgb 13.6 Hct 39.0 MCV 94 MCH 32.6 MCHC 34.9 RDW 12.8 Plt Count 334 MPV 9.0 Immature Gran % 0.4 Neutrophils % 45.2 Lymphocytes % 41.2 Monocytes % 7.0 Eosinophils % 5.4 Basophils % 0.8 Nucleated RBC % 0.0 Absolute Neutrophils 3.29 Absolute Lymphocytes 3.00 Absolute Monocytes 0.51 Absolute Eosinophils 0.39 Absolute Basophils 0.06 ESR 6 PT 9.8 INR 1.0 APTT 24.3 VBG Lactate 0.9 Sodium 142 Potassium 3.8 Chloride 105 Carbon Dioxide 27.4 Anion Gap 9.6 BUN 12 Creatinine 0.8 Est GFR (CKD-EPI 2020) 79.71 Glucose 99 Hemoglobin A1c Calcium 9.4 Magnesium 2.3 Total Bilirubin 0.6 AST 22 ALT 36 Alkaline Phosphatase 92 Troponin I < 50 < 50 C-Reactive Protein < 0.50 NT-Pro-B Natriuret Pep 35 Total Protein 7.7 Albumin 3.8 Triglycerides Total Cholesterol LDL Cholesterol, Calc HDL Cholesterol TSH 2.91 Urine Color Yellow Urine Clarity Clear Urine pH 6.0 Ur Specific [place] 1.015 Urine Protein Negative Urine Ketones Negative Urine Blood Negative Urine Nitrite Negative Urine Bilirubin Negative Urine Urobilinogen 0.2 Ur Leukocyte Esterase Trace H Urine RBC Negative Urine WBC 3-5 Ur Epithelial Cells Rare Urine Crystals Negative Urine Bacteria Rare Urine Casts Negative Urine Mucus Negative Urine Other Rare Renal Ur Culture Indicated? Yes Urine Glucose Negative 10/14/23 06:10 WBC RBC Hgb Hct MCV MCH MCHC RDW Plt Count MPV Immature Gran % Neutrophils % Lymphocytes % Monocytes % Eosinophils % Basophils % Nucleated RBC % Absolute Neutrophils Absolute Lymphocytes Absolute Monocytes Absolute Eosinophils Absolute Basophils ESR PT INR APTT VBG Lactate Sodium Potassium Chloride Carbon Dioxide Anion Gap BUN Creatinine Est GFR (CKD-EPI 2020) Glucose Hemoglobin A1c 5.2 Calcium Magnesium Total Bilirubin AST ALT Alkaline Phosphatase Troponin I C-Reactive Protein NT-Pro-B Natriuret Pep Total Protein Albumin Triglycerides 158 H Total Cholesterol 201 H LDL Cholesterol, Calc 122 H HDL Cholesterol 48 TSH Urine Color Urine Clarity Urine pH Ur Specific [place] Urine Protein Urine Ketones Urine Blood Urine Nitrite Urine Bilirubin Urine Urobilinogen Ur Leukocyte Esterase Urine RBC Urine WBC Ur Epithelial Cells Urine Crystals Urine Bacteria Urine Casts Urine Mucus Urine Other Ur Culture Indicated? Urine Glucose
[2023-10-14] MEDS: Atorvastatin 40 MG TAB 80 MG PO (18:58)
== END 2023-10-14 19:15 | disposition home or self-care (01) ==
LOC: ER 22:29 → MS 23:39
PROVIDERS: Internal Medicine; Admitting Provider General Practice; Emergency Provider Physician Assistant; Visit Provider General Practice
DX: G45.9 Transient cerebral ischemic attack, unspecified (principal); I10 Essential (primary) hypertension; R20.2 Paresthesia of skin; I51.7 Cardiomegaly; Z79.899 Other long term (current) drug therapy; Z79.82 Long term (current) use of aspirin
CPT/HCPCS: 00123; 36415; 70496; 70498; 80053; 80061; 85652; 93005; 99223; 70551; 81003; 81015; 83036; 83605; 83735; 83880; 84443; 84484; 85025; 85610; 85730; 86140; 87086; 93010; 93306; 93880; 99238; G0378; J3490